=== PATIENT | female | born 1985 | race Asian ===

== ENCOUNTER 2019-12-17 01:18 | Observation (INO) | payer OTHER ==
[~2019-12-17] VITALS: Ht 165 cm; Wt 74.0 kg
[2019-12-17] MEDS ORDERED: TERBUTALINE SULFATE 1MG/ML VIAL ONE (02:29)
[2019-12-17] MEDS ORDERED: TERBUTALINE SULFATE 1MG/ML VIAL SUBCUT PRN (02:30)
== END 2019-12-17 03:00 | disposition home or self-care (01) ==
LOC: UNDOADMOB 01:18 → 8 EST LDRP 01:18
PROVIDERS: ADMIT Obstetrics & Gynecology; ATTEND Obstetrics & Gynecology
DX: O26.893 Other specified pregnancy related conditions, third trimester (principal); R10.9 Unspecified abdominal pain; O34.219 Maternal care for unspecified type scar from previous cesarean delivery; O09.523 Supervision of elderly multigravida, third trimester; Z3A.33 33 weeks gestation of pregnancy
CPT/HCPCS: 96372; 99281; G0378; J3105